=== PATIENT | male | born 1965 | race American Indian/Alaskan Native ===

== ENCOUNTER 2016-08-16 18:48 | Emergency (ER) | payer SELFPAY ==
[2016-08-16] MEDS ORDERED: TYLENOL PO ONE (23:38)
[2016-08-17] MEDS ORDERED: MORPHINE IV ONE (00:18)
[2016-08-17] MEDS ORDERED: VALIUM IM ONE (00:18)
[2016-08-17] MEDS ORDERED: REGLAN IV ONE (00:19)
[2016-08-17] MEDS ORDERED: BENADRYL IV ONE (00:19)
[2016-08-17] MEDS ORDERED: VALIUM IV ONE (00:20)
--- NOTE | 2016-08-17 00:26 | Emergency Department Report ---
HPI - General Chief Complaint: Extremity Injury, Lower Time Seen by Provider: 08/16/16 23:36 - HPI HPI: The patient is a 50-year-old male who presents for evaluation of left hip pain. The patient has a history of left hip prosthesis. The patient reports left hip pain for the past 3-4 weeks, 10/10 in severity, throbbing in quality, exacerbated with movement of the left leg at the hip joint. He has a secondary complaint of achy generalized bilateral headache, 8/10 in severity, for the past 1 day. Not the worst headache of life. The patient denies new trauma to the left hip or head trauma, fever, chills, night sweats, paresthesias, motor deficits, rash, urine or bowel incontinence or retention, or other focal neurological deficits. He shares that his physician discontinued his Percocet prescription after being involved in an argument with him. ED Past Medical Hx - Medications Home Medications: Home Medications Medication Instructions Recorded Confirmed Last Taken Type HYDROcodone/APAP 5-325 [Redstone 1 each PO Q6HR PRN #10 tablet 08/17/16 Unknown Rx 5/325] ED Review of Systems ROS: Stated complaint: LEFT HIP PAIN/REPLACEMENT/POSS INFECTION Other details as noted in HPI Constitutional: denies: fever ENT: denies: throat or neck pain Respiratory: denies: cough, shortness of breath Cardiovascular: denies: chest pain Endocrine: denies unexplained weight loss or gain Gastrointestinal: denies: abdominal pain, nausea Genitourinary: denies: dysuria Musculoskeletal: reports left hip pain Skin: denies: rash Neurological: denies: headache Hematological/Lymphatic: denies: easy bleeding or easy bruising Psych: denies sadness or hopelessness Physical Exam - Physical Exam Vital Signs: Vital Signs 08/16/16 08/16/16 19:44 23:54 Temperature 98.1 F Pulse Rate 87 86 Respiratory 18 18 Rate Blood Pressure 132/89 Blood Pressure 132/88 [Left] O2 Sat by Pulse 98 97 Oximetry Physical Exam: General: well-nourished, well-developed, no acute distress Head: Normocephalic, atraumatic Eyes: normal sclera, EOMI, PERRL ENT: Mucous membranes are pink and moist Neck: trachea midline, neck supple, No neck stiffness, no cervical adenopathy Respiratory: Breath sounds equal bilaterally, no wheezing, rales, or rhonchi Cardio: S1 and S2 present, no murmurs, rubs, gallops, capillary refill is brisk Abdomen: Normoactive bowel sounds, soft abdomen, no tenderness Musc: Inspection of the left hip is unremarkable, no redness, ecchymosis, warmth , fluctuance, or crepitus to the left hip, full passive range of motion to the left hip intact, lateral hip joint tenderness to palpation present, distal sensation and motor function the left leg intact, distal pulses intact Skin: No rash Neuro: Alert oriented 3, no facial drooping, normal speech, and CN 2-12 grossly intact, no sensation or motor deficits in the arms or legs, reflexes 2+ symmetric on DTR testing, no coordination deficit with finger to nose testing, no obvious gross neuro deficits Psych: Normal affect ED Course Vital Signs 08/16/16 08/16/16 19:44 23:54 Temperature 98.1 F Pulse Rate 87 86 Respiratory 18 18 Rate Blood Pressure 132/89 Blood Pressure 132/88 [Left] O2 Sat by Pulse 98 97 Oximetry ED Medical Decision Making - Medical Decision Making The patient was seen and examined by myself. The patient is placed on a radiation monitor and continuous pulse ox. On initial evaluation, the patient was found to be in no distress. As there are no neuro deficits or other findings on examination concerning for acute intracranial disease process, and as the patient states that symptoms are consistent with previous headaches, a CAT scan of the head will not be obtained at this time. IV access is established and the patient is given IV Reglan, Benadryl, and IV Valium for treatment of his hip pain and headache. X-ray of the left hip is negative for acute fracture or dislocation, and shows intact left hip prosthesis. The patient was reevaluated and reported that their symptoms were improved. The patient is stable for discharge with outpatient follow-up. The patient is given follow-up and return instructions. The patient is discharged in stable condition. Critical care attestation.: If time is entered above; I have spent that time in minutes in the direct care of this critically ill patient, excluding procedure time. ED Disposition Clinical Impression: Acute pain of left hip Acute nonintractable headache Qualifiers: Headache type: unspecified Qualified Code(s): R51 - Headache Disposition: DISCHARGED TO HOME OR SELFCARE Is pt being admited?: No Does the pt Need Aspirin: No Condition: Stable Instructions: Arthralgia (ED), Acute Headache (ED) Referrals: PRIMARY CARE, [Primary Care Provider] - 3-5 Days Time of Disposition: 00:20
[2016-08-17 03:43] VITALS: BP 128/86
--- NOTE | 2016-08-17 08:28 | XRay Report ---
LEFT HIP, 2 VIEWS: HISTORY: Left hip pain. FINDINGS: No comparison. There has been previous left hip arthroplasty. 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 There is lucency surrounding the acetabular component consistent with loosening. There is no evidence for acute fracture or dislocation. IMPRESSION: Severe abnormality of the left hip prosthesis. Consultation with orthopedics is highly recommended.
== END 2016-08-17 03:15 | disposition home or self-care (01) ==
LOC: ED 18:48 → EEVIPCON 18:48 → ED 08-17 03:15
DX: M25.552 Pain in left hip (principal); R51 Headache
CPT/HCPCS: 73502; 96374; 96375; 99284; J1200; J2270; J2765; J3360